=== PATIENT | male | born 1990 | race Caucasian/White ===

== ENCOUNTER 2019-07-05 10:28 | Emergency (ER) | payer OTHER, MEDICAID, SELFPAY ==
[2019-07-05 10:29] VITALS: BP 159/100; PULSE 90; RESP 18; TEMP 36.6; O2SAT 96; BMI 40.6
--- NOTE | 2019-07-05 10:50 | ED.VISSUMM ---
- ER Visit Summary Date of Service: 07/05/19 Chief Complaint: Bite History of Present Illness: The patient is a 29 M with a raccoon bite to his right hand. This is not Workmen's Comp. His tetanus is up-to-date. No other complaints. Physical Examination: Patient has multiple superficial abrasions to his right hand, right fingers, and right wrist. Good range of motion. Neurovascularly intact. No sign of foreign body, laceration, or other complications. Test Results: None performed Emergency Department Course and Treatment: Patient will be treated with rabies immunoglobulin and rabies vaccine. He was advised that he will need follow-up on days 3, 7, and 14. He was given paperwork regarding this. He was also started on a course of Augmentin. Nursing will clean and dress the wound. Risks of infection were discussed. Patient will be discharged. Treatment Plan: As above Disposition: Discharge Impression: 1. Raccoon bite right hand 2. Rabies vaccination This note was generated with [employer] dictation software. It may contain incorrect words, spelling, and punctuation that were not noted in review of the chart prior to signing
--- NOTE | 2019-07-05 10:53 | ED.DEP ---
ED Disposition - Plan for ED Patient: Instructions: Vaccine Information: Rabies Prescriptions: Amox/Clavulanate Tablet [Augmentin Tablet] 875 mg PO Q12H 5 Days #10 tab Prescription Printed Referrals: Lisset Estrada [NON-STAFF] -
[2019-07-05] MEDS: Rabies Vaccine,Human Diploid 2.5 UNITS Vial IM (11:19)
[2019-07-05] MEDS: Amox/Clavulanate 875 MG Tablet PO (12:01)
[2019-07-05 12:02] VITALS: BP 125/77; PULSE 61; RESP 15; O2SAT 98
== END 2019-07-05 12:05 | disposition home or self-care (01) ==
PROVIDERS: Emergency Provider Emergency Medicine; Family Provider Nurse Practitioner Family; PCP Nurse Practitioner Family
DX: S60.571A Other superficial bite of hand of right hand, initial encounter (principal); S60.419A Abrasion of unspecified finger, initial encounter; S60.811A Abrasion of right wrist, initial encounter; Z23 Encounter for immunization; W55.51XA Bitten by raccoon, initial encounter; Y93.9 Activity, unspecified; Y92.9 Unspecified place or not applicable
CPT/HCPCS: 90375; 90675; 96372; 99283

== ENCOUNTER 2019-07-09 13:12 | Outpatient (CLI) | payer MEDICAID, SELFPAY ==
[2019-07-09 13:18] VITALS: BP 165/105; PULSE 74; RESP 16; TEMP 36.8; O2SAT 97; BMI 42.8
--- NOTE | 2019-07-09 13:41 | ED.RN ---
UNABLE TO DOCUMENT RABAVERT VACCINE GIVEN IN MAR. RABAVERT GIVEN IN R DELTOID WITH NO REACTIONS NOTED AFTER 20 MIN. LOT NUMBER [id number], EXP 04/2022.
== END 2019-07-09 13:45 | disposition home or self-care (01) ==
PROVIDERS: Family Provider Nurse Practitioner Family; PCP Nurse Practitioner Family; Visit Provider Emergency Medicine
DX: Z23 Encounter for immunization (principal)
CPT/HCPCS: 90675; 96372

== ENCOUNTER 2019-07-13 10:29 | Outpatient (CLI) | payer MEDICAID, SELFPAY ==
[2019-07-13] MEDS: Rabies Vaccine,Human Diploid 2.5 UNITS Vial IM (11:01)
[2019-07-13 11:04] VITALS: BP 155/95; PULSE 62; RESP 17; TEMP 36.8; O2SAT 98; BMI 42.8
== END 2019-07-13 11:18 | disposition home or self-care (01) ==
LOC: ED 12:26
PROVIDERS: Family Provider Nurse Practitioner Family; PCP Nurse Practitioner Family; Visit Provider Emergency Medicine
DX: Z23 Encounter for immunization (principal)
CPT/HCPCS: 90675; 96372

== ENCOUNTER 2019-07-20 09:50 | Outpatient (CLI) | payer MEDICAID, SELFPAY ==
[2019-07-20 10:19] VITALS: BP 156/96; PULSE 68; RESP 18; TEMP 36.4; O2SAT 98; BMI 40.6
[2019-07-20] MEDS: Rabies Vaccine,Human Diploid 2.5 UNITS Vial IM (10:42)
== END 2019-07-20 10:51 | disposition home or self-care (01) ==
PROVIDERS: Family Provider Nurse Practitioner Family; PCP Nurse Practitioner Family
DX: Z23 Encounter for immunization (principal)
CPT/HCPCS: 90675; 96372